=== PATIENT | female | born 1970 | race American Indian/Alaskan Native ===

== ENCOUNTER 2020-12-09 06:13 | Day surgery (SDC) | payer BC ==
[2020-12-06 11:16] LABS: Blood Urea Nitrogen 10 mg/dL (7-17); Calcium 9.1 mg/dL (8.4-10.2); Hemolysis Index 2
[2020-12-06 11:20] LABS: Basophils % (Auto) 0.2 % (0.0-1.8); Eosinophils # (Auto) 0.3 K/mm3 (0.0-0.4); Eosinophils % (Auto) 4.2 % (0.0-4.3); Hemoglobin 9.9 gm/dl (10.1-14.3); Lymphocytes # (Auto) 2.3 K/mm3 (1.2-5.4); Lymphocytes % (Auto) 29.2 % (13.4-35.0); Mean Corpuscular HGB Conc 33 % (30-34); Mean Corpuscular Volume 72 fl (79-97); Monocytes # (Auto) 0.3 K/mm3 (0.0-0.8); Monocytes % (Auto) 3.9 % (0.0-7.3); Platelet Count 283 K/mm3 (140-440); Red Blood Count 4.15 M/mm3 (3.65-5.03); Red Cell Distribution Width 18.1 % (13.2-15.2)
[2020-12-06 11:26] LABS: BUN/Creatinine Ratio 14
--- NOTE | 2020-12-06 12:01 | Anesthesia Consultation ---
Anesthesia Consult and Med Hx Date of service: 12/09/20 - Airway Anesthetic Teeth Evaluation: Good, Caps, Bridges ROM Head & Neck: Adequate Mental/Hyoid Distance: Adequate Mallampati Class: Class I - Pulmonary Exam CTA: Yes - Cardiac Exam Cardiac Exam: RRR - Pre-Operative Health Status ASA Pre-Surgery Classification: ASA2 Proposed Anesthetic Plan: General Nerve Block: TAP - Pulmonary Hx Smoking: No Hx Asthma: Yes (rare inhaler use) Hx Respiratory Symptoms: No - Cardiovascular System Hx Hypertension: Yes Hx Heart Attack/AMI: No - Central Nervous System CVA: No - Endocrine Hx Renal Disease: No Hx Liver Disease: No Hx Insulin Dependent Diabetes: No Hx Non-Insulin Dependent Diabetes: No Hx Thyroid Disease: No - Hematic Hx Anemia: Yes - Other Systems Hx Obesity: Yes (BMI 38) - Additional Comments Anesthesia Medical History Comments: No hx anesthetic complications.
--- NOTE | 2020-12-07 09:22 | History and Physical Report ---
History of Present Illness Date of examination: 12/06/20 History of present illness: Patient has been reassessed/reevaluated. H&P has been reviewed. No interval changes. This is a 50 years old female who presents with menstrual disorder. She complains of irregular menses, mid-cycle spotting, heavy bleeding, clotting, history of fibroids and cramping, but denies lack of menses, dysmenorrhea, history of ovarian cysts, history of thyroid disease, history of PCOS, history of bleeding disorder, lightheadedness and fatigue. Interval between menses is 28 days and 30 days. Menstrual flow lasts 5 days and 7 days. The patient also presents with uterine fibroids. She complains of pelvic pain, pelvic pressure, menorrhagia and intermenstrual bleeding. Patient's work up has included hysterosonogram with a benign endometrial biopsy and revealed leiomyomata. Patient is premenopausal. Patient's symptoms when present disrupts her normal daily activities Patient desires definitive treatment ] Vital Signs: Patient Profile: 49 Years Old Female LMP: 11/27/2020 Height: 65 inches (165.10 cm) Weight: 239 pounds BMI: 39.77 Temp: 98.0 degrees F BP sittin / 100 (left arm) Menstrual History: LMP (date): 11/27/2020 LMP - Character: normal Menarche: 12 Menstrual flow: 5 days On BCP's at conception: no Current Method of Contraception: BTL Date of Last Pap Smear: 03/18/2020 Past History : 5 Term Births: 3 Premature Births: 0 Living Children: 3 Para: 3 Mult. Births: 0 Prev : 0 Aborta: 2 Elect. Ab: 2 Spont. Ab: 0 Ectopics: 0 Current Allergies (reviewed today): CODEINE (Moderate) Hives Patient states she has taken Percocet without any problems PERCODAN (Moderate) Hives Patient states she has taken Percocet without any problems SULFA (Moderate) Past Medical History: Asthma Hypertension Endometrial Polyp Fibroids Past Surgical History: PP Tubal Ligation (2002) [employer] Surgery cryoabltion cervix foot (B) inguinal hernia repair (L) D&Cx2 Family History Summary: Family History Reviewed: 12/06/2020 Family History of Colon Polyps for Mother - Entered On: 03/20/2018 Family History of Colon Polyps for Father - Entered On: 03/20/2018 Family History of Family History Colon Cancer for Aunt, maternal - Entered On: 03/20/2018 Family History of Family History Colon Cancer for Maternal Grandmother - Entered On: 03/20/2018 No Family History of Breast Cancer for Other - Entered On: 03/20/2018 No Family History of Spontaneous DVT-PE for Other - Entered On: 03/20/2018 No Family History of Uterine Cancer for Other - Entered On: 03/20/2018 No Family History of Ovarvian Cancer for Other - Entered On: 03/20/2018 SLE mother No Family History of Breast Cancer No Family History of Ovarian Cancer No Family History of DVT/PE on OCP Social History: Marital Status: Children: 3 Occupation: Smoking History: Patient is a former smoker. Risk Factors: Smoked Tobacco Use: Former smoker Smokeless Tobacco Use: Never Passive Smoke Exposure: no Caffeine Use: <1 drinks per day Exercise: yes Times/wk: 1 Seatbelt Use: 100 % PAP Smear History: Date of Last PAP Smear: 03/18/2020 Alcohol Use: yes Type: occ Drinks per day: social Drug Use: no [employer] History Operations: PP Tubal Ligation (2002) [employer] Surgery cryoabltion cervix foot (B) inguinal hernia repair (L) D&Cx2 Abnormal PAP: positive fibroids, endometrial polyp Infection History HIV Risk Eval: no Hx of STD: None Review of Systems General Complains of fatigue. Denies fever, chills, sweats, anorexia, weakness, malaise, weight loss and sleep disorder. Complains of menorrhagia, pelvic pain and painful periods. Denies vaginal discharge, incontinence, dysuria, hematuria, urinary frequency, amenorrhea, abnormal vaginal bleeding, genital sores, decreased l ibido, painful sex, urinary urgency, hot flashes, vaginal dryness, vaginal itching and vaginal odor. CV Denies chest pains, palpitations, syncope, dyspnea on exertion, orthopnea, PND and peripheral edema. Resp Denies cough, dyspnea at rest, excessive sputum, hemoptysis, wheezing and pleurisy. GI Denies nausea, vomiting, diarrhea, constipation, change in bowel habits, abdominal pain, melena, hematochezia, jaundice, gas/bloating, indigestion/heartburn, dysphagia and odynophagia. Breast Denies left breast lump, right breast lump, nipple discharge, bloody discharge from nipple, breast pain, abnormal mammogram and breast enlargement. Psych Denies depression, anxiety, irritability and mood swings. Past History Past Medical History: hypertension, other (SEE HPI FOR DETAILS) Past Surgical History: Other (SEE HPI FOR DETAILS) Social history: , full code, other (SEE HPI FOR DETAILS) Family history: other (SEE HPI FOR DETAILS) Medications and Allergies Allergies Allergy/AdvReac Type Severity Reaction Status Date / Time aspirin [From Percodan] Allergy Hives Verified 12/03/20 16:24 codeine Allergy Hives Verified 12/03/20 16:24 oxycodone HCl [From Percodan] Allergy Hives Verified 12/03/20 16:24 oxycodone terephthalate Allergy Hives Verified 12/03/20 16:24 [From Percodan] Sulfa (Sulfonamide Allergy Hives Verified 12/03/20 16:24 Antibiotics) Home Medications Medication Instructions Recorded Confirmed Last Taken Type Albuterol Sulfate [Proventil Hfa] 2 puff IH Q4H PRN 12/03/20 12/09/20 11/10/20 09:00 History Mometasone/Formoterol [Dulera 200 1 puff IH DAILY 12/03/20 12/09/20 12/08/20 08:30 History Mcg-5 Mcg Inhaler] Olmesartan/Hydrochlorothiazide 1 each PO DAILY 12/06/20 12/09/20 12/08/20 08:30 History [Olmesartan-Hctz 40-25 mg Tab] Active Meds: Active Medications Acetaminophen (Acetaminophen 500 Mg Tab) 1,000 mg PO PREOP LENARD Stop: 12/09/20 20:00 Fentanyl (Fentanyl 100 Mcg/2 Ml Inj) 100 mcg IV ONCE PRN PRN Reason: sedation for nerve block Stop: 12/09/20 20:00 Gabapentin (Gabapentin 300 Mg Cap) 300 mg PO PREOP NR Stop: 12/09/20 20:00 Cefazolin Sodium (Ancef/Sterile Water 2 Gm/20 Ml) 2 gm in 20 mls @ 80 mls/hr IV PREOP NR; Protocol Stop: 12/09/20 20:00 Lactated Ringer's (Lactated Ringers) 1,000 mls @ 100 mls/hr IV DIRECT LENARD Stop: 12/09/20 23:59 Midazolam HCl (Midazolam 2 Mg/2 Ml Inj) 2 mg IV PREOP NR Stop: 12/09/20 20:00 Scopolamine (Scopolamine Transdermal Patch 72 Hr) 1 each TD PREOP NR Stop: 12/09/20 20:00 Review of Systems Constitutional: other (SEE HPI FOR DETAILS) Exam - Physical Exam Narrative exam: HEENT: normocephalic, no lesions or deformities Skin no ulcers, xanthomas Chest: respiratory effort normal, clear to auscultation CV: regular, normal S1-S2, no murmur, no rub, no gallop Abdomen: Obese, normal bowel sounds, soft, nontender, no HSM Neuro: no gross anomalities Extremities: normal alignment, no joint enlargement, crepitus, masses or tenderness; normal tone and strength [employer] Exams Vulva/Vagina: normal appearance, no discharge, lesions. No evidence of cystocele or rectocele. Cervix: normal appearance, no lesions, no discharge Uterus: unable to palpate due to obesity Adnexae: unable to palpate due to obesity Rectovaginal: exam defered - Constitutional Vitals: Temp Pulse Resp BP Pulse Ox 97.9 F 80 20 139/90 100 12/06/20 10:30 12/06/20 10:30 12/06/20 10:30 12/06/20 10:30 12/06/20 10:30 Results - Labs CBC & Chem 7: 12/06/20 10:01 12/06/20 10:01 Labs: Abnormal lab results 12/06/20 12/06/20 Range/Units 10:01 10:01 Hgb 9.9 L (10.1-14.3) gm/dl Hct 30.0 L (30.3-42.9) % MCV 72 L (79-97) fl MCH 24 L (28-32) pg RDW 18.1 H (13.2-15.2) % Sodium 136 L (137-145) mmol/L Potassium 3.4 L (3.6-5.0) mmol/L Glucose 101 H (65-100) mg/dL Assessment and Plan - Patient Problems (1) Intramural leiomyoma of uterus Current Visit: No Status: Acute Plan to address problem: Diagnosis explained to patient . Questions answered. Discussed with patient various medical, surgical and radiological therapies common for treatment including expectant management, myomectomy hysterectomy and uterine artery embolization Patient desires definitive treatment Patient desires hysterectomy Discussed risks and benefits of laparotomy, laparoscopy, vaginal and robotic assisted approaches for hysterectomies Patient desires robotic assisted total hysterectomy. Consent reviewed and signed . The risks and alternatives for this surgery were reviewed with the patient. Discuss the risks of the surgery including infection, bleeding possibly heavy enough to require a blood transfusion, possible damage to bowel, bladder or ureter. Patient understand that this surgery with make her sterile.Patient understands if her ovaries are removed she will become menopausal. Also if unable to complete robitcally a laparotomy may be required. Discussed delay in scheduling elective procedures requiring inpatient care due to COVID -19 pandemic. Patient understands and desires to proceed when able Patient understands and desires to proceed. (2) Menometrorrhagia Current Visit: No Status: Acute Plan to address problem: Probably secondary to # 1 (3) Pelvic pain Current Visit: No Status: Acute Plan to address problem: Probably secondary to # 1 (4) Endometrial polyp Current Visit: No Status: Acute Plan to address problem: Possible etiology of #2 also (5) Hypertension Current Visit: No Status: Chronic Qualifiers: Hypertension type: primary hypertension Qualified Code(s): I10 - Essential (primary) hypertension (6) Asthma Current Visit: No Status: Acute Qualifiers: Asthma severity: mild (7) Anemia due to chronic blood loss Current Visit: No Status: Chronic Plan to address problem: Probably secondary to # 2 (8) BMI 39.0-39.9,adult Current Visit: No Status: Chronic Plan to address problem: Patient has been advised that obesity does increase risks of surgical and risks of post operative complications.
[~2020-12-09 06:13] MED LIST: ACETAMINOPHEN 500 MG TAB PO SCH; GABAPENTIN 300 MG CAP PO NR; LACTATED RINGERS 1,000 ML IV SCH; MIDAZOLAM 2 MG/2 ML INJ IV NR; SCOPOLAMINE TRANSDERMAL PATCH 72 HR TD NR; fentaNYL 100 MCG/2 ML INJ IV PRN
[2020-12-09] MEDS ORDERED: fentaNYL 100 MCG/2 ML INJ ONE (07:02)
[2020-12-09] MEDS ORDERED: ROCURONIUM 50 MG/5 ML INJ IV ONE ×2 (07:03→09:37)
[2020-12-09] MEDS ORDERED: propofoL 200 MG/20 ML VIAL IV ONE (07:03)
[2020-12-09] MEDS ORDERED: NEOMY 40 MG/POLYMYXIN B 200,000 UNITS/ML (GU) AMPULE IR ONE ×2 (07:11→08:42)
[2020-12-09] MEDS ORDERED: BUPIVACAINE/PF (0.25%) 2.5 MG/ML 30 ML VIAL INFILTRATI ONE (07:14)
[2020-12-09] MEDS ORDERED: dexAMETHasone 4 MG/ML VIAL ONE (07:14)
[2020-12-09] MEDS ORDERED: ceFAZolin/Water 2 GM/20 ML 2 GM/20 ML SYRINGE IV ONE (07:45)
[2020-12-09] MEDS ORDERED: oxyCODONE /ACETAMINOPHEN 5-325MG TAB PO PRN ×2 (08:08→11:05)
[2020-12-09] MEDS ORDERED: ONDANSETRON 4 MG/2 ML INJ IV PRN (08:08)
[2020-12-09] MEDS ORDERED: HYDROmorphone 1 MG/1 ML INJ IV PRN (08:08)
--- NOTE | 2020-12-09 08:08 | Anesthesia Day of Surgery ---
Anesthesia Day of Surgery - Day of Surgery Patient Examined: Yes Patient H&P Reviewed: Yes Patient is NPO: Yes
[2020-12-09] MEDS ORDERED: SODIUM CHLORIDE 0.9% IRR 1,500 ML BOTTLE IR ONE (08:42)
[2020-12-09] MEDS ORDERED: SODIUM CHLORIDE 0.9% IRRIG SOLN 2000 ML IR ONE (08:42)
[2020-12-09] MEDS ORDERED: ePHEDrine SULFATE 50 MG/1 ML INJ ONE (08:45)
[2020-12-09] MEDS ORDERED: LIDOCAINE MPF (2%) 20 MG/1 ML VIAL 5 ML ONE (09:37)
[2020-12-09] MEDS ORDERED: dexAMETHasone 20 MG/5 ML VIAL ONE (09:38)
[2020-12-09] MEDS ORDERED: ONDANSETRON 4 MG/2 ML INJ ONE (09:38)
[2020-12-09] MEDS ORDERED: PHENYLEPHRINE/NS 1,000 MCG/10 ML SYRINGE (OR USE) IV ONE ×2 (09:38→10:02)
[2020-12-09] MEDS ORDERED: NEOSTIGMINE 10MG/10 ML INJ MDV ONE (09:50)
[2020-12-09] MEDS ORDERED: ceFAZolin/Water 2 GM/20 ML 2 GM/20 ML SYRINGE IV NR (11:00)
[2020-12-09] MEDS ORDERED: IBUPROFEN 600 MG TAB PO PRN (11:00)
--- NOTE | 2020-12-09 11:16 | Operative Report ---
Operative Report Operative Report: Date of procedure: December 09, 2020 Pre-operative diagnosis: Symptomatic leiomyomata with pelvic pain Post-operative diagnosis: Same plus pelvic omental adhesive disease Procedure name(s):Robotic Assisted Total Hysterectomy with bilateral salpingectomy with lysis of adhesion Surgeon: Genaro Banks MD Butcher: Stephanie Martinez, certified pest control technician Anesthesia: Tap block with General endotracheal EBL: 50 cc Complications: None Findings: Patient with omental adhesions on anterior abdominal wall near the umbilicus patient with a uterus approximately 12 weeks in size with multiple leiomyomata the largest being fundal anterior approximately 6 cm in diameter patient with a pedunculated myoma anterior approximately 3 cm in diameter had normal ovaries bilaterally and bilaterally interrupted fallopian tubes Specimen(s): Uterus with cervix and bilateral fallopian tubes Procedure: Patient was brought to the operating room where general anesthesia was induced without difficulty. Patient was placed in the dorsal lithotomy position. Prepped and draped in the usual sterile manner for robotic procedure. Rockwell catheter was placed without difficulty. Speculum was placed in the vagina. A large V-Care Uterine manipulator was placed without difficulty. Attention was n ow switched to the patient's abdomen. A vertical supra-umbilicus incision was made with a scalpel. A 10-12 trocar was placed in this incision under direct visualization. Intra-abdominal placement was verified with no evidence of internal organ damage. The patient pelvic findings were noted as above. It was determined that the patient was a candidate for robotic procedure. On both sides the umbilical incision at about 8 cm, incisions were made for robotic trocars. Each robotic trocar was placed under direct visualization with no evidence of internal organ damage. One 5 mm trocar was placed 2 fingerbreadths above the right iliac crest. A 5 mm camera was placed in the right lower quadrant trocar, the 10-12 trocar was removed and a Leo Escalante laparoscopic port closure device was placed through this incision under direct visualization with no evidence of internal organ damage. The camera was then replaced into this port. At this time the patient was placed in extreme Trendelenburg. The da Chucho robot was then docked on the patient's left side. The trocars connected to the robot appropriately robotic instruments were placed under direct visualization no evidence of internal organ damage.. At this time I took my place under the robotic operating sawyer. Due to the thick omentum adhesions did block visualization of the patient's pelvis, therefore started procedure with taken down this adhesions with the robotic scissors. The lysis of adhesions was done without any evidence of internal organ damage. Starting on the patient's right side the ureter was identified and found to be out of the operative field. Using the robotic vessel sealer the mesosalpinx under the fallopian tube were cauterized and cut starting from the distal end. Utero-ovarian complex was then cauterized and cut. This was followed by cauterizing and cutting the right fallopian tube and right round ligament. The broad ligament was then opened. The bladder flap was formed anteriorly. The posterior broad ligament was then excised. The uterine vessels were skeletonized. The ureter was clearly seen out of the operative field. The bladder was pushed away from the anterior uterus. The right uterine vessels were then cauterized and cut. Attention was then switched to the patient's left side. The same procedure was repeated on the left side with perform the salpingectomy followed by isolating the uterine vessels cauterized and cutting and completing the bladder flap from the left side. At this time the uterus was appearing very cyanotic. After inspecting the bladder flap to insured no evidence of bladder injury, the colpotomy was then started. The colpotomy was started anteriorly due to prominent laxity of the intestines in the posterior cul-de-sac. The incision started at 12:00 until the V-Care could be seen. This incision was extended from 12:00 to 9:00. Then from 12:00 to 3:00. Then from 9:00 to 6:00. This incision was extended from 3:00 to 6:00. At this time colpotomy was complete with no evidence of adjacent organ damage. The human resources assistant remove the uterus from through the colpotomy site. The vaginal cuff was irrigated and cauterized and found to be hemostatic. The cuff was closed with roboticly using 0 V- Lock suture. This closure was hemostatic after irrigation and Bovie. All pedicles were inspected and found to be hemostatic. The ureters were identified bilaterally and found to be functioning normal. The patient had clear urine in the Rockwell catheter with no evidence of mixture with blood. Surgicel powder was placed on the cuff and pedicles for postoperative hemostasis . All instruments were then removed. The large trocar sites were closed in layers 2-0 Vicryl and 4-0 Monocryl. The smaller incisions were closed subcuticularly with 4-0 Monocryl. Dermabond was placed over the skin incisions. The patient tolerated procedure well. She was awakened in the operating room and accompanied to the recovery room in good c ondition.
--- NOTE | 2020-12-09 15:06 | Short Stay Summary ---
Short Stay Documentation Date of service: 12/09/20 - History Principal diagnosis: Symptomatic leiomyomata H&P: dictated Past Medical History: hypertension, other (SEE HPI FOR DETAILS) Past Surgical History: Other (SEE HPI FOR DETAILS) Social history: , full code, other (SEE HPI FOR DETAILS) - Allergies and Medications Current Medications: Allergies aspirin [From Percodan] Allergy (Verified 12/03/20 16:24) Hives codeine Allergy (Verified 12/03/20 16:24) Hives oxycodone HCl [From Percodan] Allergy (Verified 12/03/20 16:24) Hives oxycodone terephthalate [From Percodan] Allergy (Verified 12/03/20 16:24) Hives Sulfa (Sulfonamide Antibiotics) Allergy (Verified 12/03/20 16:24) Hives Home Medications Medication Instructions Recorded Confirmed Last Taken Type Albuterol Sulfate [Proventil Hfa] 2 puff IH Q4H PRN 12/03/20 12/09/20 11/10/20 09:00 History Mometasone/Formoterol [Dulera 200 1 puff IH DAILY 12/03/20 12/09/20 12/08/20 08:30 History Mcg-5 Mcg Inhaler] Olmesartan/Hydrochlorothiazide 1 each PO DAILY 12/06/20 12/09/20 12/08/20 08:30 History [Olmesartan-Hctz 40-25 mg Tab] Ibuprofen [Motrin] 800 mg PO TID PRN #30 tablet 12/09/20 Unknown Rx RX: Ferrous Sulfate [Feosol 325 MG 325 mg PO BID #60 tablet 12/09/20 Unknown Rx tab] oxyCODONE /ACETAMINOPHEN [Percocet 1 - 2 tab PO Q6HR PRN #20 tablet 12/09/20 Unknown Rx 5/325 mg] Active Medications Acetaminophen (Acetaminophen 500 Mg Tab) 1,000 mg PO PREOP LENARD Stop: 12/09/20 20:00 Last Admin: 12/09/20 06:50 Dose: 1,000 mg Documented by: Fentanyl (Fentanyl 100 Mcg/2 Ml Inj) 100 mcg IV ONCE PRN PRN Reason: sedation for nerve block Stop: 12/09/20 20:00 Last Admin: 12/09/20 07:27 Dose: 100 mcg Documented by: Gabapentin (Gabapentin 300 Mg Cap) 300 mg PO PREOP NR Stop: 12/09/20 20:00 Last Admin: 12/09/20 06:50 Dose: 300 mg Documented by: Hydromorphone HCl (Hydromorphone 1 Mg/1 Ml Inj) 0.5 mg IV Q10MIN PRN PRN Reason: Pain , Severe (7-10) Stop: 12/09/20 23:00 Last Admin: 12/09/20 11:35 Dose: 0.5 mg Documented by: Cefazolin Sodium (Ancef/Sterile Water 2 Gm/20 Ml) 2 gm in 20 mls @ 80 mls/hr IV PREOP NR; Protocol Stop: 12/09/20 20:00 Lactated Ringer's (Lactated Ringers) 1,000 mls @ 100 mls/hr IV DIRECT LENARD Stop: 12/09/20 23:59 Last Admin: 12/09/20 06:50 Dose: 100 mls/hr Documented by: Ibuprofen (Ibuprofen 600 Mg Tab) 600 mg PO Q6H PRN PRN Reason: Pain, Mild (1-3) Midazolam HCl (Midazolam 2 Mg/2 Ml Inj) 2 mg IV PREOP NR Stop: 12/09/20 20:00 Last Admin: 12/09/20 07:27 Dose: 2 mg Documented by: Oxycodone/Acetaminophen (Oxycodone /Acetaminophen 5-325mg Tab) 2 tab PO ONCE PRN PRN Reason: Pain, Moderate (4-6) Stop: 12/09/20 16:00 Scopolamine (Scopolamine Transdermal Patch 72 Hr) 1 each TD PREOP NR Stop: 12/09/20 20:00 Last Admin: 12/09/20 06:55 Dose: 1 each Documented by: - Physical exam General appearance: no acute distress Integumentary: no rash HEENT: Atraumatic Lungs: Normal air movement Breasts: deferred Heart: Regular rate Gastrointestinal: hypoactive bowel sounds, tenderness (Appropriate postop), distended (Appropriately status post robotic assisted surgery), other (Incisions healing well) Female Genitourinary: normal Rectal Exam: normal exam-external/orifice Extremities: no ischemia, pulses intact, Full ROM Neurological: Normal gait, Normal speech - Brief post op/procedure progress note Date of procedure: 12/09/20 (See dictated operative note for details) - Hospital course Hospital course: Patient was admitted underwent the above him procedure without any complications. Patient was admitted and underwent above procedure without complications. Her post operative extended recovery observation course was benign she was afebrile throughout. Patient had no orthostatic symptoms. Patient was tolerating regular diet and voiding without difficulty at time of discharge. Patient incision was healing well without evidence of infection. Patient will be discharged with follow-up in office in 1-2 weeks for postop check - Disposition Condition at discharge: Good Disposition: 01 HOME / SELF CARE / HOMELESS - Discharge Diagnoses (1) Intramural leiomyoma of uterus Status: Acute (2) Menometrorrhagia Status: Acute (3) Pelvic pain Status: Acute (4) Endometrial polyp Status: Acute (5) Hypertension Status: Chronic Qualifiers: Hypertension type: primary hypertension Qualified Code(s): I10 - Essential (primary) hypertension (6) Asthma Status: Acute Qualifiers: Asthma severity: mild (7) Anemia due to chronic blood loss Status: Chronic (8) BMI 39.0-39.9,adult Status: Chronic Short Stay Discharge Plan Activity: advance as tolerated Diet: regular Wound: open to air Additional Instructions: Patient instructed no heavy lifting for 4 weeks. No intercourse for 8 weeks. Call office for fever, chills, nausea, vomiting or pain not controlled by pain medications. Ambulation is encouraged. Patient's call for heavy vaginal bleeding. Patient instructed to keep her scheduled post operative office appointment. Follow up with: GRECIA RODRIGUEZ MD [Primary Care Provider] - 7 Days Prescriptions: RX: Ferrous Sulfate [Feosol 325 MG tab] 325 mg PO BID #60 tablet Ibuprofen [Motrin] 800 mg PO TID PRN #30 tablet PRN Reason: Pain oxyCODONE /ACETAMINOPHEN [Percocet 5/325 mg] 1 - 2 tab PO Q6HR PRN #20 tablet PRN Reason: Pain
--- NOTE | 2020-12-09 15:54 | Post Anesthesia Evaluation ---
- Post Anesthesia Evaluation Patient Participated: Yes Airway Patent: Yes Stable Respiratory Function: Yes Nausea/Vomiting: No Temp > 96.8F: Yes Pain Manageable: Yes Adequeate Hydration: Yes Anesthesia Complications: No
[2020-12-09 16:19] VITALS: BP 132/78
== END 2020-12-09 06:14 | disposition home or self-care (01) ==
LOC: OR 06:13
PROVIDERS: ATTEND Obstetrics & Gynecology
DX: D25.1 Intramural leiomyoma of uterus (principal); N84.0 Polyp of corpus uteri; I10 Essential (primary) hypertension; N92.1 Excessive and frequent menstruation with irregular cycle; J45.909 Unspecified asthma, uncomplicated; E66.9 Obesity, unspecified; D50.0 Iron deficiency anemia secondary to blood loss (chronic); Z79.899 Other long term (current) drug therapy; Z98.890 Other specified postprocedural states; Z88.5 Allergy status to narcotic agent; Z88.8 Allergy status to other drugs, medicaments and biological substances; Z68.38 Body mass index [BMI] 38.0-38.9, adult; Z20.822 Contact with and (suspected) exposure to COVID-19
CPT/HCPCS: 36415; 58573; 64488; 80048; 84703; 85025; 86850; 86900; 86901; 88307; A4217; J0690; J1100; J1170; J2250; J2370; J2405; J2704; J2710; J3010; J7120; S2900; U0003; 64450